=== PATIENT | male | born 1950 | race Caucasian/White ===

== ENCOUNTER 2016-06-24 14:38 | Inpatient (IN) | payer OTHER, MEDICARE ==
[~2016-06-24] VITALS: Ht 175.3 cm; Wt 102.6 kg
[~2016-06-24 14:38] MED LIST: ACET500C PO; DICL75TA PO; NAPR220T95 PO; ROSU10 PO; TRAM50TA PO
[2016-06-25] MEDS: SODIUM CHLORIDE 0.9% IV SCH ×2 (05:45→07:44)
[2016-06-25] MEDS ORDERED: INSULIN HUMAN REGULAR 1,000 UNITS/10 ML VIAL SQ PRN (05:45)
[2016-06-25] MEDS: TRANEXAMIC ACID IV SCH ×2 (05:45→07:44)
[2016-06-25] MEDS ORDERED: VANCOMYCIN 1250 MG/NS 250 ML (for 70-84 kg) IV SCH ×2 (05:45)
[2016-06-25] MEDS: ROPIVACAINE PERI-ARTICULAR INJECTION. PERIART SCH ×10 (05:45→09:30)
[2016-06-25] MEDS: LACTATED RINGER'S 1000 ML IV SCH (05:45)
[2016-06-25] MEDS ORDERED: ceFAZolin 2 GM PREMIX 50 ML IV SCH (05:45)
[2016-06-25] MEDS ORDERED: METOPROLOL TARTRATE 25 MG TAB PO PRN (05:45)
[2016-06-25] MEDS ORDERED: SODIUM CHLORID 0.9% 500 ML IV SCH (05:45)
[2016-06-25] MEDS: POVIDONE IODINE 7.5% SCRUB 118 ML BOTTLE TOP SCH (05:45)
[2016-06-25 05:50] VITALS: BP 153/86; PULSE 65; RESP 20; TEMP 97.4; O2SAT 96
[2016-06-25] MEDS ORDERED: VITA10003 PO (05:53)
[2016-06-25] MEDS ORDERED: ALLO300T2 PO (05:53)
[2016-06-25 06:15] LABS: AUTOMATED NEUTROPHIL # 3.2 TH/MM3 (1.8-7.7); BASOPHIL % 0.5 % (0.0-2.0); EOSINOPHIL # 0.1 TH/MM3 (0-0.4); EOSINOPHIL % 1.9 % (0.0-4.0); HEMATOCRIT 36.5 % (39.0-51.0); LYMPH % 12.9 % (9.0-44.0); LYMPHOCYTE # 0.6 TH/MM3 (1.0-4.8); MEAN CELL VOLUME 84.2 FL (80.0-100.0); MEAN CORPUSCULAR HGB CONC 34.4 % (32.0-36.0); NEUT % 74.7 % (16.0-70.0); PLATELET COUNT 96 TH/MM3 (150-450); RED BLOOD COUNT 4.33 MIL/MM3 (4.50-5.90); RED CELL DISTRIBUTION WIDTH 15.6 % (11.6-17.2); WHITE BLOOD COUNT 4.3 TH/MM3 (4.0-11.0)
[2016-06-25 06:18] LABS: HEMO FLAGS AUTO DIFF
[2016-06-25] MEDS ORDERED: MIDAZOLAM HCL 5 MG/5 ML VIAL ONE (06:48)
[2016-06-25] MEDS ORDERED: DEXAMETHASONE SOD PHOS 4 MG/ML VIAL ONE (06:53)
[2016-06-25] MEDS ORDERED: FAMOTIDINE 20 MG/2 ML VIAL ONE (06:53)
[2016-06-25 06:56] LABS: PLATELET ESTIMATE SMEAR LOW (NORMAL); PLATELET MORPHOLOGY NORMAL (NORMAL); SCAN/DIFF AUTO DIFF CONFIRMED
[2016-06-25] MEDS ORDERED: GENTAMICIN SULFATE 80 MG/2 ML VIAL IRRIGATION ONE (08:04)
[2016-06-25] MEDS: TOBRAMYCIN SULFATE 1200 MG VIAL ONE ×2 (08:19→09:24)
--- NOTE | 2016-06-25 08:42 | MH ---
cc: JAIR,MERRY DATE OF ADMISSION: 06/25/2016 ADMISSION DIAGNOSIS End-stage osteoarthritis right knee PROPOSED SURGERY Total knee replacement arthroplasty HISTORY OF PRESENT ILLNESS He has had problems for several years with both his knees and had undergone arthroscopic surgeries and nonoperative treatment. He saw me for the first time in March of 2016 complaining that the knee pain got so bad that he could barely ambulate and he had to be seen [facility] and was given crutches. He gave a history that he has had several cortisone injections in the past and they only helped temporarily. When seen on March 27, 2016, he was noted to be using crutches and barely able to bear weight and x-rays revealed [id number] with end-stage osteoarthritis. The diagnosis, treatment, the prognosis and the alternative treatment were all discussed with him in detail. He has already undergone several cortisone shots and arthroscopic surgery. Being that it is [id number] viscosupplementation is not going to help. Therefore, an indication was made for total knee replacement arthroplasty. He has been worked up and now brought in after informed consent for total knee replacement arthroplasty. PERSON/SOCIAL HISTORY Stopped smoking five years ago. He has occasional alcohol intake. 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 PAST HISTORY Arthritis. No other significant medical history. PAST SURGICAL HISTORY 1. Appendectomy in 1955 2. Arthroscopic surgery right and left knees. MEDICATIONS 1. Diclofenac 75 b.i.d. 2. Tylenol. ALLERGIES None. The procedure total knee of replacement arthroplasty and the potential risks, hazards and complications and potential outcome. They have all been discussed in detail. For details of informed consent, please refer to my office record. We talked to him basically about pain management, nerve blocks, periarticular injections, postoperative care, post hospital care, rehabilitation etc. My specific protocol for knee replacement have all been discussed. His preop workup is satisfactory. He does have a borderline low white count and borderline low platelets and I have discussed the situation with the ice sculptor who does not feel that there is any contraindication to surgery, but he may need a detailed workup on an elective basis. Informed consent has been obtained. No guarantees made. PHYSICAL EXAMINATION GENERAL: A tall, well-built and nourished white male who has a significant limp on the right leg. He has varus deformity and a mild flexion contracture. Range of motion is about 5 degrees to 120 degrees. 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 He has obvious osteophytic changes or tenderness over the medial joint line. No instability. He has palpable pedal pulses in the foot and no neurovascular deficit in the right foot. HEENT: Head normocephalic. Pupils react to light. Face symmetrical. HEART: Regular rhythm. No murmurs. LUNGS: Clear to auscultation. ABDOMEN: Soft and supple. The kidney not enlarged or tender. Bowel sounds active. MD FENG Montes/ /5:24 PM /8:40 AM
[2016-06-25] MEDS ORDERED: BUPIVACAINE HCL PF 0.5% 30 ML VIAL NB ONE (08:58)
[2016-06-25] MEDS ORDERED: SODIUM CHLORIDE 0.9% IV SCH ×2 (10:00→11:30)
[2016-06-25] MEDS ORDERED: TRANEXAMIC ACID IV SCH ×2 (10:00→11:30)
[2016-06-25] MEDS ORDERED: ONDANSETRON HCL 4 MG/2 ML VIAL IVP PRN (10:15)
[2016-06-25] MEDS ORDERED: ACETAMINOPHEN/HYDROcodone 325 MG/5 MG TAB PO PRN (10:15)
[2016-06-25] MEDS ORDERED: NALOXONE HCL 0.4 MG/ML AMP IV PRN (10:15)
[2016-06-25] MEDS ORDERED: diphenhydrAMINE HCL 50 MG/ML VIAL IV PRN (10:15)
[2016-06-25] MEDS ORDERED: Post-op Orders (for Pharmacy) MISC XX ONE (10:15)
[2016-06-25] MEDS ORDERED: TEMAZEPAM 15 MG CAP PO PRN (10:15)
[2016-06-25] MEDS ORDERED: SODIUM CHLORIDE 0.9% FLUSH 5 ML FLUSH IVF PRN (10:15)
[2016-06-25] MEDS ORDERED: traMADol HCL 50 MG TAB PO PRN (10:30)
[2016-06-25] MEDS: MORPHINE SULFATE 30 MG/30 ML PCA IV SCH (10:54)
[2016-06-25] MEDS: SODIUM CHLOR 0.9% 1000 ML INJ 1,000 ML IV SCH ×2 (10:54→20:48)
--- NOTE | 2016-06-25 11:45 | RADRPT ---
EXAM DATE/TIME: 06/25/2016 10:57 [facility] COMPARISON: No previous studies available for comparison. INDICATIONS : Post op right knee. MEDICAL HISTORY : None. SURGICAL HISTORY : None. ENCOUNTER: Initial ACUITY: 1 day PAIN SCORE: Non-responsive. LOCATION: Right knee. FINDINGS: The patient is post right knee arthroplasty. Orthopedic hardware is intact. The alignment is good. Th ere is no acute fracture. CONCLUSION: 1. Hardware in good position post arthroplasty. Serafin Mahoney MD on June 25, 2016 at 11:43 Board Certified Radiologist. This report was verified electronically.
[2016-06-25] MEDS: KETOROLAC TROMETHAMINE 30 MG/ML (IVP) VIAL IVP SCH ×2 (12:00→20:43)
[2016-06-25] MEDS: ceFAZolin 2 GM PREMIX 50 ML IV SCH ×2 (12:00→20:42)
[2016-06-25] MEDS: VANCOMYCIN INJ 1,000 MG in SODIUM CHLOR 0.9% 250 ML INJ 250 ML IV SCH ×2 (12:00→23:00)
[2016-06-25] MEDS ORDERED: ePHEDrine/NS 25 MG/5 ML SYR IV ONE (12:55)
[2016-06-25] MEDS ORDERED: LACTATED RINGER'S 1000 ML INJ 1,000 ML IV ONE (12:55)
[2016-06-25] MEDS ORDERED: PROPOFOL 200 MG/20 ML AMP IV ONE (12:55)
[2016-06-25 15:54] VITALS: BP 122/70; PULSE 61; RESP 18; TEMP 95.5; O2SAT 93
[2016-06-25 16:01] VITALS: O2SAT 97
--- NOTE | 2016-06-25 16:32 | MP ---
cc: MERRY TERRAZAS DATE OF SURGERY: 06/25/2016 PREOPERATIVE DIAGNOSIS: Osteoarthritis, right knee. POSTOPERATIVE DIAGNOSIS: Osteoarthritis, right knee. OPERATION: Total knee replacement arthroplasty using cemented Biomet components, femur 75 millimeter right tibia, 75 millimeter with I-beam stem, poly 12 mm flat patella medium. single peg. SURGEON Dr. Terrazas. ANESTHESIA Spinal. TECHNIQUE After induction of spinal anesthesia the patient's right lower extremity thoroughly prepped with alcohol and ChloraPrep, draped in routine fashion. After application of Esmarch bandage tourniquet inflated to 300 mmHg. The skin incision made somewhat medial to midline to avoid the tibial tuberacle. Incision deepened through subcutaneous tissue and arthrotomy was carried out. Osteophytes were excised in the medial femur and medial tibia and the soft tissue was raised on the medial side to the posterior medial corner excising osteophytes at the same time. Limited synovectomy carried out to just above the femur anteriorly so as to get better exposure. Femoral canal opened anterior to the posterior cruciate ligament, and the distal femoral cutting guide set at 5 degrees was used to make the distal cut, additional 2 mm of bone removed because of his mild flexion contracture of 5 degrees. External tibial guide was used to remove the proximal tibia referencing 4 mm from the lower most portion of the medial tibial plateau and this was completed. AP femoral guide was used to put the femoral guide at 6 degrees of external rotation to align it closer to the epicondylar axis and also be perpendicular to the [place] Line. A 75 millimeter AP block was used to make AP and chamfer cuts and everything looked good. Debridement of the joint was carried out. Clean-up cuts were made in the tibia, other additional osteophytes removed. Posterior osteophytes removed from the femur. Spacer block was now used and the 10 mm spacer block fits well in flexion and extension. Patella was prepared following routine technique. It was a fairly large patella and he seems to have somewhat of a tighter lateral retinaculum and, therefore, the patella was medialized and about 6 millimeters of the lateral border of the patella was excised with an oscillating saw. Trial implants were all placed and position, alignment, stability were all good. There was still some residual tightness of the lateral retinaculum, and after we checked everything including rotation of the components, a limited lateral release was carried out under direct vision. Bony surfaces thoroughly lavaged and dried. A mixture of ropivacaine, clonidine, epinephrine and Toradol was instilled evelyn-articularly with an 18 gauge needle. Femoral canal plugged with bone. Using 2 units of cobalt cement with 1200 mg of tobramycin in it, the implants were cemented with the tibia first and the femur, and then extension of the knee with a 12 mm spacer and patella cemented and clamped. Once the cement solidified joint was checked. Tourniquet released right after the implantation of the implants. Position, alignment, stability were all checked. Everything looks good. The joint was thoroughly lavaged and suctioned out. All debris removed and a 12-mm flat polyethylene liner was placed and clipped. Hemovac drain placed in the suprapatellar pouch. The knee was closed in mid flexion with 4 interrupted #2 Vicryl sutures in the midportion of the retinaculum and then #2 quill for the rest of the closure. Subcutaneous tissue closed with 2-0 Vicryl, skin closed with 3-0 subcuticular quill and Steri-Strips. Dressing applied with Xeroform, 4x4s, ABD, ice bladder and Jones bandage. The patient transferred to the recovery room in satisfactory condition. The patient tolerated the procedure well. TRANSFUSIONS/COMPLICATIONS: None. POSTOPERATIVE CONDITION Satisfactory PROGNOSIS Good. ESTIMATED BLOOD LOSS: 150 mL The patient's platelets are still below normal. It was 96 this morning, therefore, we are going to keep him just on aspirin at least for 24 hours, especially with him receiving spinal anesthetic. We will keep track of his platelets and decide whether to put him on Lovenox or just continue aspirin. MD FENG Montes/LAINEY /10:27 AM /4:17 PM
[2016-06-25] MEDS: MAGNESIUM HYDROXIDE SUSP 30 ML CUP PO SCH ×2 (17:43→20:47)
[2016-06-25] MEDS: ACETAMINOPHEN 1000 MG/100 ML VIAL IV SCH (17:45)
[2016-06-25] MEDS: ASPIRIN EC 325 MG TABEC PO SCH (17:45)
[2016-06-25 20:29] VITALS: BP 115/72; PULSE 63; RESP 20; TEMP 96.4; O2SAT 97
[2016-06-25] MEDS: SENNOSIDES 8.6 MG TAB PO SCH (20:47)
[2016-06-25] MEDS: SODIUM CHLORIDE 0.9% FLUSH 5 ML FLUSH IVF SCH (20:48)
[2016-06-26] VITALS (7 sets, daily range): BP systolic 102–127; BP diastolic 59–71; PULSE 62–74; RESP 18–20; TEMP 96.2–98.6; O2SAT 92–100
[2016-06-26] MEDS: ceFAZolin 2 GM PREMIX 50 ML IV SCH (04:55)
[2016-06-26] MEDS: KETOROLAC TROMETHAMINE 30 MG/ML (IVP) VIAL IVP SCH ×3 (04:55→20:00)
[2016-06-26] MEDS: ACETAMINOPHEN 1000 MG/100 ML VIAL IV SCH ×2 (04:56→17:41)
[2016-06-26] MEDS: SODIUM CHLOR 0.9% 1000 ML INJ 1,000 ML IV SCH ×3 (04:57→22:23)
[2016-06-26] MEDS: MORPHINE SULFATE 30 MG/30 ML PCA IV SCH (05:02)
[2016-06-26] MEDS: POVIDONE IODINE 7.5% SCRUB 118 ML BOTTLE TOP SCH (05:45)
[2016-06-26] MEDS: LACTATED RINGER'S 1000 ML IV SCH (05:45)
[2016-06-26 06:08] LABS: REVIEW FLAG FINAL
[2016-06-26 06:13] LABS: BICARBONATE 27.8 MEQ/L (21.0-32.0); POTASSIUM 3.7 MEQ/L (3.5-5.1)
--- NOTE | 2016-06-26 07:44 | HHI.FF ---
Face to Face Verification Diagnosis: (1) Osteoarthritis (2) Hyperlipidemia (3) Right knee pain (4) Total knee replacement status Physical Therapy Gait training Knee: Total knee, Protocol: Right Right LE Weight Bearing: WB as tolerated Nursing Nursing: Marcos teaching, Dressing changes Dressing Changes: Daily dressing change, Coverderm/Primapore I have seen patient Ti Toure on 06/26/16. My clinical findings support the need for the requested home health care services because: Limited ability to care for self Injectable med education/admin I certify that my clinical findings support that this patient is homebound because: Unable to use public transportation Lino Terrazas MD Jun 26, 2016 07:44
[2016-06-26] MEDS ORDERED: MISC-163 (07:47)
[2016-06-26] MEDS ORDERED: WALKER WHEELS/F1 MIS (07:48)
--- NOTE | 2016-06-26 07:53 | PD.ORT.PN ---
Subjective Post Op Day #: 1 Pain Scale: great Subjective Remarks great Range of Motion able to do SLR and quads Objective Vitals Vital Signs Date Time Temp Pulse Resp B/P Pulse Ox O2 Delivery O2 Flow Rate FiO2 06/26/16 05:02 18 06/26/16 04:26 97.2 65 19 117/68 97 06/26/16 00:30 96.2 65 20 114/68 96 06/25/16 20:29 96.4 63 20 115/72 97 06/25/16 19:07 16 06/25/16 16:01 97 Nasal Cannula 2.00 06/25/16 15:54 95.5 61 18 122/70 93 06/25/16 14:00 61 15 114/71 97 Nasal Cannula 2 06/25/16 13:00 97.4 65 14 135/76 97 Nasal Cannula 2 06/25/16 12:00 57 14 108/64 97 Nasal Cannula 2 06/25/16 11:45 60 14 109/63 97 Nasal Cannula 3 06/25/16 11:30 55 14 100/56 96 Nasal Cannula 3 06/25/16 11:15 59 16 97/58 95 Nasal Cannula 3 06/25/16 11:00 56 16 97/57 95 Nasal Cannula 3 06/25/16 10:54 14 06/25/16 10:45 61 16 101/54 95 Nasal Cannula 3 06/25/16 10:30 64 16 94/62 96 Nasal Cannula 3 06/25/16 10:24 98.1 72 16 91/51 95 Nasal Cannula 3 I/O 06/25/16 06/25/16 06/25/16 06/26/16 06/26/16 06/26/16 07:00 15:00 23:00 07:00 15:00 23:00 Intake Total 1964 ml 240 ml 240 ml Output Total 1100 ml 400 ml 200 ml Balance 864 ml -160 ml 40 ml Intake Oral 240 ml 240 ml IV Total 864 ml Other 1100 ml Output Urine Total 1050 ml 400 ml 200 ml Estimated Blood Loss 50 ml # Bowel Movements 0 0 Result Diagram: 06/26/16 0503 06/26/16 0503 Imaging Last 72 hours Impressions Knee X-Ray 06/25/16 0000 Signed Impressions: Service Date/Time: Saturday, June 25, 2016 10:57 - CONCLUSION: 1. Hardware in good position post arthroplasty. Serafin Mahoney MD Objective Remarks doing great. Moves toes well Hemovac draining moderately to check platelets Assessment & Plan Ortho Post Op Day #: 1 Problem List: Assessment and Plan Doing well to chk plate;ets ASA bid for VTE prophylaxis. low risk for it. Lino Terrazas MD Jun 26, 2016 07:53
[2016-06-26] MEDS: SODIUM CHLORIDE 0.9% FLUSH 5 ML FLUSH IVF SCH ×2 (09:00→22:22)
[2016-06-26] MEDS: ASPIRIN EC 325 MG TABEC PO SCH ×2 (09:42→17:40)
[2016-06-26] MEDS: CELECOXIB 200 MG CAP PO SCH (09:42)
[2016-06-26] MEDS: ALLOPURINOL 300 MG TAB PO SCH (09:42)
[2016-06-26] MEDS: CHOLECALCIFEROL (VIT D3) 1000 UNIT TAB PO SCH (09:42)
[2016-06-26] MEDS: MAGNESIUM HYDROXIDE SUSP 30 ML CUP PO SCH ×2 (09:44→22:22)
--- NOTE | 2016-06-26 16:51 | OTSOAPIP ---
TIME SESSION COMPLETED: PM TREATMENT TIME: 0 MINS. CHART REVIEWED. ATTEMPTED TO SEE FOR OT ASSESSMENT, HOWEVER PT EN ROUTE TO THE JOINT CLASS. WILL FOLLOW ABLE. Therapist: SOPHIA RIVERA OT/Zeina Signature on file
[2016-06-26] MEDS: ACETAMINOPHEN/HYDROcodone 325 MG/5 MG TAB PO PRN ×2 (17:40→22:27)
[2016-06-26] MEDS: DOCUSATE SODIUM 100 MG CAP PO SCH (22:21)
[2016-06-26] MEDS: SENNOSIDES 8.6 MG TAB PO SCH (22:22)
[2016-06-27] VITALS: BP 110/47; PULSE 76; RESP 20; TEMP 99.7; O2SAT 96
[2016-06-27 04:00] VITALS: BP 133/70; PULSE 81; RESP 20; TEMP 99.4; O2SAT 95
[2016-06-27] MEDS: ACETAMINOPHEN/HYDROcodone 325 MG/5 MG TAB PO PRN ×4 (04:13→17:35)
[2016-06-27] MEDS: KETOROLAC TROMETHAMINE 30 MG/ML (IVP) VIAL IVP SCH (04:14)
[2016-06-27] MEDS: LACTATED RINGER'S 1000 ML IV SCH ×2 (05:45→19:47)
[2016-06-27] MEDS: POVIDONE IODINE 7.5% SCRUB 118 ML BOTTLE TOP SCH (05:45)
[2016-06-27] MEDS: ACETAMINOPHEN 1000 MG/100 ML VIAL IV SCH ×2 (06:00→17:36)
[2016-06-27 07:02] LABS: AUTOMATED NEUTROPHIL # 2.9 TH/MM3 (1.8-7.7); BASOPHIL % 0.3 % (0.0-2.0); EOSINOPHIL # 0.1 TH/MM3 (0-0.4); EOSINOPHIL % 1.4 % (0.0-4.0); HEMATOCRIT 24.8 % (39.0-51.0); LYMPH % 15.4 % (9.0-44.0); LYMPHOCYTE # 0.6 TH/MM3 (1.0-4.8); MEAN CELL VOLUME 84.6 FL (80.0-100.0); MEAN CORPUSCULAR HEMOGLOBIN 29.1 PG (27.0-34.0); MEAN CORPUSCULAR HGB CONC 34.4 % (32.0-36.0); MONO % 13.1 % (0.0-8.0); NEUT % 69.8 % (16.0-70.0); PLATELET COUNT 79 TH/MM3 (150-450); RED BLOOD COUNT 2.93 MIL/MM3 (4.50-5.90); RED CELL DISTRIBUTION WIDTH 15.8 % (11.6-17.2); WHITE BLOOD COUNT 4.1 TH/MM3 (4.0-11.0)
[2016-06-27 07:28] LABS: HEMO FLAGS AUTO DIFF
--- NOTE | 2016-06-27 07:54 | PD.ORT.PN ---
Subjective Post Op Day #: 2 Pain Scale: minimal Subjective Remarks great Distance Walked walking hallways Objective Vitals Vital Signs Date Time Temp Pulse Resp B/P Pulse Ox O2 Delivery O2 Flow Rate FiO2 06/27/16 04:00 99.4 81 20 133/70 95 06/27/16 00:00 99.7 76 20 110/47 96 06/26/16 20:00 98.6 74 18 107/59 94 06/26/16 18:11 18 06/26/16 18:11 18 06/26/16 16:00 96.8 70 18 102/71 94 06/26/16 14:00 18 06/26/16 14:00 18 06/26/16 12:00 96.9 62 18 109/64 94 06/26/16 08:11 100 21 06/26/16 08:00 96.7 70 18 127/68 92 I/O 06/26/16 06/26/16 06/26/16 06/27/16 06/27/16 06/27/16 07:00 15:00 23:00 07:00 15:00 23:00 Intake Total 240 ml 1200 ml 240 ml 240 ml Output Total 330 ml 480 ml 375 ml Balance -90 ml 720 ml -135 ml 240 ml Intake Oral 240 ml 1200 ml 240 ml 240 ml Output Urine Total 200 ml 300 ml 225 ml Drainage Total 130 ml 180 ml 150 ml # Voids 0 # Bowel Movements 0 0 0 0 Result Diagram: 06/27/16 0525 06/26/16 0503 Imaging Last 72 hours Impressions Knee X-Ray 06/25/16 0000 Signed Impressions: Service Date/Time: Saturday, June 25, 2016 10:57 - CONCLUSION: 1. Hardware in good position post arthroplasty. Serafin Mahoney MD Objective Remarks doing great. Moves toes well Hemovac draining moderately, last 180 ml in 12 hours. Platelets yesterday 89, today 79. WBC ok Hb/Hct borderline Assessment & Plan Ortho Post Op Day #: 2 Problem List: Assessment and Plan DC drain and compressive drsg and ice. DC aspirin Close observation Hematology consult.. Lino Terrazas MD Jun 27, 2016 07:53
[2016-06-27 08:00] VITALS: BP 121/70; PULSE 66; RESP 16; TEMP 96; O2SAT 98
[2016-06-27 08:01] LABS: PLATELET ESTIMATE SMEAR LOW (NORMAL); PLATELET MORPHOLOGY NORMAL (NORMAL); SCAN/DIFF AUTO DIFF CONFIRMED
[2016-06-27] MEDS: ALLOPURINOL 300 MG TAB PO SCH (09:26)
[2016-06-27] MEDS: MAGNESIUM HYDROXIDE SUSP 30 ML CUP PO SCH ×2 (09:26→19:46)
[2016-06-27] MEDS: CELECOXIB 200 MG CAP PO SCH (09:26)
[2016-06-27] MEDS: DOCUSATE SODIUM 100 MG CAP PO SCH ×2 (09:26→19:46)
[2016-06-27] MEDS: CHOLECALCIFEROL (VIT D3) 1000 UNIT TAB PO SCH (09:26)
[2016-06-27] MEDS: SODIUM CHLORIDE 0.9% FLUSH 5 ML FLUSH IVF SCH ×2 (09:26→19:46)
[2016-06-27 11:26] LABS: APTT (PATIENT) 28.6 SEC (24.3-30.1); PROTHROMBIN TIME - PATIENT 11.4 SEC (9.8-11.6)
[2016-06-27] MEDS: SODIUM CHLOR 0.9% 1000 ML INJ 1,000 ML IV SCH ×2 (12:15→19:47)
[2016-06-27 13:43] VITALS: BP 118/64; PULSE 71; RESP 16; TEMP 96.3; O2SAT 97
[2016-06-27 16:00] VITALS: BP 133/69; PULSE 71; RESP 16; TEMP 96; O2SAT 95
[2016-06-27] MEDS: SENNOSIDES 8.6 MG TAB PO SCH (19:46)
[2016-06-27 20:00] VITALS: BP 118/59; PULSE 71; RESP 18; TEMP 96; O2SAT 96
--- NOTE | 2016-06-27 22:48 | MB ---
cc: MERRY TERRAZAS RUBY ANNE E. M.D. DATE OF CONSULTATION 06/27/16 1950 DATE OF SERVICE 06/27/[address] Miah Terrazas CHIEF COMPLAINT Dr. Terrazas requests a consultation for Mr. Toure regarding thrombocytopenia post right knee replacement surgery. HISTORY OF PRESENT ILLNESS Mr. Toure is a 66-year-old man with a history of arthritis. He reports hurting his knee a long time ago in his teens. When he lives in [place], he had multiple joint aspirations in that knee. He hurt his knee around Thanksgiving. He stepped off the curve the wrong way and it sounds like he tore his anterior and posterior cruciate ligament. This is on top of already osteoarthritic knee. Towards the end of the year, he was switching insurance. He had to defer from definitive surgery for his right knee until he had established with his new insurance. During the course of his workup, he was found to have thrombocytopenia. He reports no prior history of thrombocytopenia. He was pending consultation with hematology. He has no prior history of bleeding disorder. He has had multiple surgeries in the past for the neck, the ear and appendix. He denies any prior thrombocytopenia. He has been with Dr. De Leon for many years. Prior platelet counts are not available during the consultation. The case was discussed with Dr. Terrazas. Mr. Toure underwent his definitive surgery with total knee replacement arthroplasty. His surgery went uneventfully well on June 25, 2016. He was placed on aspirin prophylaxis 325 mg. Unfortunately, he developed progressive thrombocytopenia and increased bloody discharge from his drain. His platelet count was 96,000 on admission. It nadired at 79,000 at the day of the consultation. His hemoglobin was 12.5 on admission and decreased to 8.5. Coagulation studies were performed. PT/PTT, fibrinogen were normal. His peripheral smear was reviewed with pathology. There is no evidence of microangiopathic hemolytic process. No platelet count is appreciated. He denies any other bleeding except from the drain site removal. Mr. Toure feels himself actually getting better. The previous osteoarthritic pain symptom has resolved. He denies any prior history of liver disease. He denies heavy drinking. He has no family history of bleeding disorder. His parents both lived to be in their 90s. Father of Alzheimer's disease. He denies any fevers, chills or night sweats. His appetite is good. The rest of his review of systems is negative. PAST MEDICAL HISTORY Osteoarthritis of the right knee. PAST SURGICAL HISTORY 1. Appendectomy, 2. Arthroscopic surgery of right and left knee 3. Neck surgery 4. Right ear surgery FAMILY HISTORY No family history of cancer. No family history of bleeding disorder. Both parents lived to their 90s and are now . Father had Alzheimer's. ALLERGIES NO KNOWN DRUG ALLERGIES. MEDICATIONS current, 1. Docusate. 2. Celebrex. 3. Allopurinol 4. Vitamin D3. 5. Senokot. 6. Acetaminophen 7. Milk of Magnesia 8. Ultram. 9. [place] p.r.n. 10. Cephazolin. 11. Aspirin has been placed on hold. PHYSICAL EXAMINATION VITAL SIGNS: Temperature 96.3, heart rate 71, respiratory rate 16, blood pressure 118/64, saturation 97%. GENERAL: Mr. Toure is a well-developed, robust appearing man who looks his stated age. HEENT: His pupils are round, reactive to light and accommodation. Oropharynx is clear. NECK: Supple. LUNGS: Clear to auscultation. CARDIOVASCULAR: Exam reveals normal rate, rhythm. ABDOMEN: Benign. EXTREMITIES: Large lower extremity with swelling of the right leg, right knee bandage is in place. The drain site is leaking serosanguineous fluid. NEUROLOGIC: Exam is nonfocal. LABORATORY DATA As described above. ASSESSMENT/PLAN Ms. Toure is a 66-year-old man with no significant past history except for osteoarthritis. He hurt his right knee requiring right total knee replacement surgery. His course was complicated by chronic thrombocytopenia. We discussed the differential. He has thrombocytopenia and mild anemia prior to his admission. We discussed his chronic use of ibuprofen for his osteoarthritis. He had use NSAIDs in the past. Denies any bleeding. No melena or bright red blood per rectum. However, his MCV is low. I will check iron studies. We will continue evaluation for the cytopenias on an outpatient basis. Immune thrombocytopenic purpura appears less likely given the small degree of platelet count decrease. His platelet count went from 96,000-79,000. This is acceptable within range of post surgical changes. However, he has significant amount of bleeding with his hemoglobin decreasing from 12.5-8.5. I concur with holding his aspirin because of the continued oozing. I anticipate being able to resume his aspirin tomorrow as DVT prophylaxis once the oozing has stopped. He has no evidence of coagulopathy or DIC. He looks well. We discussed trying to avoid a platelet transfusion unless absolutely necessary. We discussed that his suture line site appears to be good. He is moving his legs in order to avoid deep vein thromboses. He is using pneumatic compression stockings for the foot in order to prevent a deep vein thromboses. I will obtain ultrasound of the liver and spleen. Differential is hypersplenism. Clinically I am unable to feel a large spleen. His abdomen is large. He denies any drinking recently, but he had in the past. He reports not drinking as much as he would usually like since he had to hold down a job. 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 Immune thrombocytopenic purpura appears less likely as the mean platelet volume is low. I am unable to exclude thrombocytopenia as drug effect. He was exposed to cephalosporin during this admission. We will continue to follow and monitor closely. MD DAYNA Moreno/ /6:31 PM /10:28 PM MTDDemar
[2016-06-28] VITALS: BP 101/63; PULSE 76; RESP 16; TEMP 98.5; O2SAT 98
[2016-06-28] MEDS: ACETAMINOPHEN/HYDROcodone 325 MG/5 MG TAB PO PRN ×2 (03:09→08:35)
[2016-06-28] MEDS: ACETAMINOPHEN 1000 MG/100 ML VIAL IV SCH (05:43)
[2016-06-28 07:24] LABS: HEMATOCRIT 24.2 % (39.0-51.0); MEAN CELL VOLUME 84.6 FL (80.0-100.0); MEAN CORPUSCULAR HGB CONC 34.3 % (32.0-36.0); PLATELET COUNT 82 TH/MM3 (150-450); RED BLOOD COUNT 2.86 MIL/MM3 (4.50-5.90); RED CELL DISTRIBUTION WIDTH 16.3 % (11.6-17.2); WHITE BLOOD COUNT 3.6 TH/MM3 (4.0-11.0)
[2016-06-28 07:31] LABS: REVIEW FLAG FINAL
[2016-06-28 08:00] VITALS: BP 121/76; PULSE 80; RESP 16; TEMP 96; O2SAT 96
[2016-06-28] MEDS: SODIUM CHLOR 0.9% 1000 ML INJ 1,000 ML IV SCH ×2 (08:15→12:20)
[2016-06-28] MEDS: CHOLECALCIFEROL (VIT D3) 1000 UNIT TAB PO SCH (08:34)
[2016-06-28] MEDS: CELECOXIB 200 MG CAP PO SCH (08:34)
[2016-06-28] MEDS: ALLOPURINOL 300 MG TAB PO SCH (08:34)
[2016-06-28] MEDS: SODIUM CHLORIDE 0.9% FLUSH 5 ML FLUSH IVF SCH ×2 (08:35→21:07)
[2016-06-28] MEDS: MAGNESIUM HYDROXIDE SUSP 30 ML CUP PO SCH ×2 (08:36→21:00)
[2016-06-28] MEDS: DOCUSATE SODIUM 100 MG CAP PO SCH ×2 (08:36→21:00)
--- NOTE | 2016-06-28 09:29 | PD.ORT.PN ---
Subjective Post Op Day #: 3 Pain Scale: hardly any Subjective Remarks great Objective Vitals Vital Signs Date Time Temp Pulse Resp B/P Pulse Ox O2 Delivery O2 Flow Rate FiO2 06/28/16 00:00 98.5 76 16 101/63 98 06/27/16 20:00 96.0 71 18 118/59 96 06/27/16 16:00 96.0 71 16 133/69 95 06/27/16 13:43 96.3 71 16 118/64 97 I/O 06/27/16 06/27/16 06/27/16 06/28/16 06/28/16 06/28/16 07:00 15:00 23:00 07:00 15:00 23:00 Intake Total 240 ml 1320 ml 780 ml Output Total 500 ml Balance 240 ml 820 ml 780 ml Intake Oral 240 ml 1320 ml 780 ml Output Urine Total 500 ml # Voids 0 6 3 # Bowel Movements 0 1 0 Result Diagram: 06/28/16 0633 06/26/16 0503 Other Results Laboratory Tests Test 06/27/16 11:02 Prothrombin Time 11.4 SEC (9.8-11.6) Prothromb Time International 1.0 RATIO Ratio Imaging Last 72 hours Impressions Knee X-Ray 06/25/16 0000 Signed Impressions: Service Date/Time: Saturday, June 25, 2016 10:57 - CONCLUSION: 1. Hardware in good position post arthroplasty. Serafin Mahoney MD Objective Remarks oozed drainage soiling dressing yesterday. Drsgs changed this am, so far dry Moves toes well Assessment & Plan Assessment and Plan HEMATOLOGY CONSULT APPRECIATED If dressings stay dry to restart ASA, but only 325 once a day Hopefully DC tomorrow. Lino Terrazas MD Jun 28, 2016 09:29
[2016-06-28 12:00] VITALS: BP 112/65; PULSE 78; RESP 16; TEMP 97.9; O2SAT 96
--- NOTE | 2016-06-28 13:38 | PD.ONC.PN ---
Subjective Subjective Remarks Afebrile overnight. Pt sitting up on side of bed in no distress. He has been walking around the room with walker. His pain is controlled. No SOB. No bleeding. Objective Data Date Time Temp Pulse Resp B/P Pulse Ox O2 Delivery O2 Flow Rate FiO2 06/28/16 08:00 96.0 80 16 121/76 96 06/28/16 00:00 98.5 76 16 101/63 98 06/27/16 20:00 96.0 71 18 118/59 96 06/27/16 16:00 96.0 71 16 133/69 95 06/27/16 13:43 96.3 71 16 118/64 97 06/28/16 06/28/16 06/28/16 07:00 15:00 23:00 Intake Total 780 ml Balance 780 ml Result Diagram: 06/28/16 0633 06/26/16 0503 Laboratory Results Laboratory Tests Test 06/28/16 06:33 White Blood Count 3.6 TH/MM3 Red Blood Count 2.86 MIL/MM3 Hemoglobin 8.3 GM/DL Hematocrit 24.2 % Mean Corpuscular Volume 84.6 FL Mean Corpuscular Hemoglobin 29.0 PG Mean Corpuscular Hemoglobin 34.3 % Concent Red Cell Distribution Width 16.3 % Platelet Count 82 TH/MM3 Mean Platelet Volume 8.5 FL Administered Medications Medications (Trade) Dose Ordered Sig/Leanna Route PRN Reason Start Time Stop Time Status Last Admin Dose Admin Lactated Ringer's 1,000 ml @ 30 mls/hr Q24H IV 06/25/16 05:45 06/25/16 05:45 Sodium Chloride (NS 1000 ml Inj) 1,000 ml @ 100 mls/hr Q10H IV 06/25/16 10:15 06/26/16 04:57 IV Flush (NS Flush) 2 ml BID IVF 06/25/16 21:00 06/28/16 08:35 Acetaminophen/ Hydrocodone Bitart ([place] 5-325 Mg) 1 tab Q4H PRN PO PAIN LESS THAN 5 ON SCALE 06/25/16 10:15 06/26/16 13:00 Acetaminophen/ Hydrocodone Bitart ([place] 5-325 Mg) 2 tab Q4H PRN PO PAIN SCALE 5 TO 10 06/25/16 10:15 06/28/16 08:35 Docusate Sodium (Colace) 100 mg BID PO 06/26/16 21:00 06/27/16 09:26 Morphine Sulfate (Morphine 1 Mg/ ml CONSULTANT NURSE) 30 mg UNSCH IV 06/25/16 10:15 06/26/16 05:02 Celecoxib (CeleBREX) 200 mg DAILY PO 06/26/16 09:00 06/28/16 08:34 Allopurinol (Zyloprim) 300 mg DAILY PO 06/26/16 09:00 06/28/16 08:34 Cholecalciferol (Vitamin D3) 1,000 units DAILY PO 06/26/16 09:00 06/28/16 08:34 Magnesium Hydroxide (Milk Of Santana Mcnamara) 30 ml BID PO 06/25/16 17:00 06/27/16 09:26 Sennosides (Senokot) 17.2 mg HS PO 06/25/16 21:00 06/26/16 22:22 Objective Remarks GENERAL: Older male, sitting up on side of bed in no distress. SKIN: Warm and dry. HEAD: Normocephalic. EYES: No injection or drainage. NECK: Supple, trachea midline. CARDIOVASCULAR: +S1/S2. RESPIRATORY: Lungs clear to auscultation. EXTREMITIES: RLE with swelling and Jones bandage. Cooling apparatus in place to R knee. GASTROINTESTINAL: Abdomen soft, non-tender, nondistended. NEUROLOGICAL: No obvious focal deficit. Awake, alert, and oriented x3. Assessment/Plan Problem List: (1) Thrombocytopenia Status: Acute Plan: -- Likely due to post surgical changes --? Drug effect; was treated with cephalosporins this admission -- ITP less likely -- OK to restart ASA for DVT prophylaxis once no further oozing (2) Normocytic anemia Status: Acute Plan: -- Likely due to post-surgical bleeding. -- Ferritin level OK -- Further assess cytopenias on an outpatient basis. Assessment 66 y/o male admitted for total R knee replacement and was found to have thrombocytopenia with oozing from surgical site. Plan 1. OK to restart Aspirin as prophylaxis once no oozing from R knee incision. 2. Monitor CBC; no platelet transfusion unless counts dropping with continued bleeding. 3. Will see pt on an outpatient basis to further address cytopenias. Dot Soto Jun 28, 2016 13:38 Bright Crook MD Jun 29, 2016 13:06
[2016-06-28 16:00] VITALS: BP 142/72; PULSE 69; RESP 16; TEMP 97.6; O2SAT 97
[2016-06-28 20:32] VITALS: BP 140/81; PULSE 80; RESP 21; TEMP 96.3; O2SAT 98
[2016-06-28] MEDS: SENNOSIDES 8.6 MG TAB PO SCH (21:00)
[2016-06-29 00:30] VITALS: BP 131/73; PULSE 80; RESP 21; TEMP 96.2; O2SAT 97
[2016-06-29] MEDS: SODIUM CHLOR 0.9% 1000 ML INJ 1,000 ML IV SCH ×2 (04:15→08:41)
[2016-06-29] MEDS: ACETAMINOPHEN/HYDROcodone 325 MG/5 MG TAB PO PRN ×2 (05:39→12:28)
[2016-06-29] MEDS: LACTATED RINGER'S 1000 ML IV SCH (05:45)
[2016-06-29 08:14] VITALS: BP 137/86; PULSE 73; RESP 18; TEMP 95.6; O2SAT 98
[2016-06-29] MEDS: CELECOXIB 200 MG CAP PO SCH (08:40)
[2016-06-29] MEDS: MAGNESIUM HYDROXIDE SUSP 30 ML CUP PO SCH (08:40)
[2016-06-29] MEDS: DOCUSATE SODIUM 100 MG CAP PO SCH (08:40)
[2016-06-29] MEDS: CHOLECALCIFEROL (VIT D3) 1000 UNIT TAB PO SCH (08:41)
[2016-06-29] MEDS: ALLOPURINOL 300 MG TAB PO SCH (08:41)
[2016-06-29] MEDS ORDERED: ASPI325T PO (08:44)
[2016-06-29] MEDS ORDERED: HYDR-3516 PO (08:44)
--- NOTE | 2016-06-29 08:48 | PD.ORT.PN ---
Subjective Post Op Day #: 4 Pain Scale: not much Subjective Remarks great Range of Motion 10 to75 degs Distance Walked all over the place Objective Vitals Vital Signs Date Time Temp Pulse Resp B/P Pulse Ox O2 Delivery O2 Flow Rate FiO2 06/29/16 00:30 96.2 80 21 131/73 97 06/28/16 20:32 96.3 80 21 140/81 98 06/28/16 16:00 97.6 69 16 142/72 97 06/28/16 12:00 97.9 78 16 112/65 96 I/O 06/28/16 06/28/16 06/28/16 06/29/16 06/29/16 06/29/16 07:00 15:00 23:00 07:00 15:00 23:00 Intake Total 780 ml 600 ml 720 ml 480 ml Output Total 1000 ml Balance 780 ml 600 ml 720 ml -520 ml Intake Oral 780 ml 600 ml 720 ml 480 ml Output Urine Total 1000 ml # Voids 3 3 3 1 # Bowel Movements 0 0 0 Result Diagram: 06/28/16 0633 06/26/16 0503 Imaging Last 72 hours Impressions Knee X-Ray 06/25/16 0000 Signed Impressions: Service Date/Time: Saturday, June 25, 2016 10:57 - CONCLUSION: 1. Hardware in good position post arthroplasty. Serafin Mahoney MD Objective Remarks A.A, & O Right knee: Moderate swelling and bruising. Incision dry. Drainsite dry, dry blood on dressing Moves toes well Assessment & Plan Ortho Post Op Day #: 4 Problem List: Assessment and Plan DC home with C Rx hydrocodone and ASA 325 To see me 2 wks postop Lino Terrazas MD Jun 29, 2016 08:48
[2016-06-29] MEDS: SODIUM CHLORIDE 0.9% FLUSH 5 ML FLUSH IVF SCH (09:00)
--- NOTE | 2016-07-05 20:54 | MD ---
cc: JAIR,MERRY ADMISSION DATE: 06/25/2016 DISCHARGE DATE: 06/29/2016 ADMISSION DIAGNOSIS: End-stage osteoarthritis both knees. SURGICAL PROCEDURES: Total knee replacement arthroplasty, right knee. BRIEF HISTORY: She has a long history of problems with both knees having had conservative treatment with injections, NSAIDs as well as arthroscopic surgery in the past. She is now at the point that she is not able to ambulate without assistive devices and not able to work because of pain in both knees, right worse than left. Preoperative workup showed a thrombocytopenia but within reasonable limits and some low white count. PT and APTT were normal. HOSPITAL COURSE: The patient underwent total knee replacement arthroplasty uneventfully on the day of admission. The postoperative course consisted of more than normal drainage through the Hemovac with platelets diminishing on serial CBCs but the lowest being 79,000. Therefore, the Hemovac drain was left for about forty hours and then discontinued. Dressings were applied. Hematology consult was obtained and it was suspected it was assessed that did the thrombocytopenia was probably due to excessive NSAIDs intake and/or due to history of alcohol, et cetera and needs a more thorough workup as an outpatient on an elective basis. Aspirin b.i.d. was used initially for prophylactic anticoagulation for DVT but because of the excessive bleeding and oozing and the following platelets, that was discontinued. Yesterday the CBC indicated a white count of 3600 and a platelet count of 82,000. The patient's knee was examined today and reveals moderate swelling, no bleeding anywhere. The drain site is dry. There is some ecchymosis. He moves the knee through a fairly good range of motion. He is ambulating and weightbearing all over the place without much pain. He is afebrile. Home health care has been arranged for dressing changes and physical therapy. I have instructed them to walk as much as possible and constantly do range of motion of the foot and toes. We are sending him home on aspirin 325 mg once a day. He is also getting a prescription for hydrocodone 5/325 one to two four times a day PRN for pain #90. He was advised to constantly use large ice bag over the knee. The patient will see me in the office two weeks postop. If there are any questions, he will give me a call. The patient will continue on his home medications except for the Diclofenac. DISCHARGE CONDITION: Stable. MD FENG Montes/ABNER /8:51 AM /8:41 PM
== END 2016-06-29 13:03 | disposition home health service (06) | DRG 470 ==
LOC: HSDI 06-25 05:09 → N06A 06-25 14:21
PROVIDERS: ADMIT Orthopaedic Surgery; ATTEND Orthopaedic Surgery
PROC: 3E0T3CZ (ICD-10-PCS; 2016-06-25)
PROC: 0SRC0J9 Replacement of Right Knee Joint with Synthetic Substitute, Cemented, Open Approach (ICD-10-PCS; principal; 2016-06-25 07:20)
DX: M17.11 Unilateral primary osteoarthritis, right knee (principal); D69.6 Thrombocytopenia, unspecified; D64.9 Anemia, unspecified; Z87.891 Personal history of nicotine dependence
CPT/HCPCS: 73560; 80048; 82728; 85014; 85018; 85025; 85027; 85049; 85060; 85384; 85610; 85730; 86850; 86900; 86901; 86902; 86920; 86922; 94150; C1776; J0131; J0171; J0690; J0735; J1100; J1200; J1580; J1885; J2250; J2270; J2795; J3260; J3370; J7030; J7050; J7120

== ENCOUNTER 2016-08-11 09:00 | Inpatient (IN) | payer OTHER, MEDICARE ==
[~2016-08-11] VITALS: Ht 175.3 cm; Wt 118.4 kg
[~2016-08-11 09:00] MED LIST changes: -ACET500C PO; +ALLO300T2 PO; -DICL75TA PO; -NAPR220T95 PO; -ROSU10 PO
[2016-09-23] MEDS ORDERED: ASPI81TA19 PO (12:48)
[2016-09-23] MEDS ORDERED: CHOL1CAP6 PO (12:48)
[2016-09-23] MEDS ORDERED: IRON27TA PO (12:49)
[2016-09-24 08:30] VITALS: BP 137/87; PULSE 66; RESP 20; TEMP 99; O2SAT 96
[2016-09-24] MEDS ORDERED: CHLORHEXIDINE GLUCONATE 4% SOLN 120 ML BTL TOPICAL SCH (08:30)
[2016-09-24] MEDS ORDERED: INSULIN HUMAN REGULAR 1,000 UNITS/10 ML VIAL SQ PRN (08:30)
[2016-09-24] MEDS ORDERED: ceFAZolin 2 GM PREMIX 50 ML IV SCH (08:30)
[2016-09-24] MEDS ORDERED: POVIDONE IODINE 5% (ANTISEPSIS KIT) 4 APPLICATIONS EACH NARE PRN (08:30)
[2016-09-24] MEDS ORDERED: SODIUM CHLORID 0.9% 500 ML IV PRN (08:30)
[2016-09-24] MEDS ORDERED: VANCOMYCIN 1250 MG/NS 250 ML (for 70-84 kg) IV SCH ×2 (08:30)
[2016-09-24] MEDS ORDERED: CHLORHEXIDINE GLUCONATE 2 % 1 PACK (2 CLOTHS) TOPICAL PRN (08:30)
[2016-09-24] MEDS ORDERED: METOPROLOL TARTRATE 25 MG TAB PO PRN (08:30)
[2016-09-24] MEDS ORDERED: LACTATED RINGER'S 1000 ML IV PRN (08:30)
--- NOTE | 2016-09-24 08:49 | EKG ---
Date Performed: 09/24/2016 Time Performed: 08:28:28 PTAGE: 66 years EKG: Sinus rhythm NORMAL ECG NO PREVIOUS TRACING DOCTOR: Eric Stinson Interpretating Date/Time 09/24/2016 08:49:03
[2016-09-24] MEDS ORDERED: BUPIVACAINE LIPOSOME PF 1.3% 20 ML VIAL ONE (09:24)
[2016-09-24] MEDS ORDERED: TRANEXAMIC ACID INJ 994 MG in SODIUM CHLORIDE 0.9% INJ 100 ML IV SCH ×2 (10:00→13:00)
[2016-09-24] MEDS ORDERED: PROPOFOL 500 MG/50 ML INJ 50 ML ONE (10:29)
[2016-09-24] MEDS ORDERED: MIDAZOLAM HCL 2 MG/2 ML VIAL ONE (10:29)
[2016-09-24] MEDS ORDERED: FAMOTIDINE 20 MG/2 ML VIAL ONE (10:29)
--- NOTE | 2016-09-24 11:04 | MH ---
cc: MERRY ADAM M.D. DATE OF ADMISSION 09/24/2016 ADMITTING DIAGNOSIS End-stage osteoarthritis left knee PROPOSED SURGERY Total knee replacement arthroplasty left knee PRESENT HISTORY He has had problems with both knees for several years and has undergone arthroscopic surgeries and injections and anti-inflammatories. When he first saw me in March of 2016, he was unable to walk without the use of crutches especially with the right knee, but he also had problems with both knees. The patient underwent total knee replacement arthroplasty of the right knee performed on June 25, 2016. He has done very well. He is now being brought in for total knee replacement arthroplasty of the left knee. PAST HISTORY Other than the arthroscopic surgery right and left knees, he has had appendectomy. MEDICATIONS 1. Tylenol 2. NSAID'S 3. Diclofenac PERSONAL AND SOCIAL HISTORY He stopped smoking several years ago. He takes occasional alcohol. He worked for a [employer] for many years and now works part-time at [employer]. ALLERGIES None REVIEW OF SYSTEMS His main complaint is pain and instability of the left knee. The diagnosis, the treatment, the prognosis and the potential risks, hazards, complications expected results have all been discussed in detail with him. Informed consent obtained. Detailed informed consent documented on the office record. The patient did low platelets on the last admission for the total knee and he was seen by a camp advisor in the hospital and later on as outpatient. He did not need any specific treatment. His platelets now were near normal. PHYSICAL EXAM Physical examination reveals a tall white male with a big frame who has a healed scar on the right knee with mild residual swelling, but good range of motion from zero to 110 degrees. Left knee as well has obvious osteophytic changes medial joint line. The varus deformity is hidden by the subluxation laterally of the tibia. Flexion can be done well beyond 90 degrees. He has palpable pedal pulses and moves his toes well. He has tenderness over the medial joint line and crepitus in the patellofemoral joint of the left knee. No pain on range of motion of the left hip. HEAD: Normocephalic. EYES: Pupils react to light. FACE: Symmetrical. HEART: Regular rhythm. No murmurs. LUNGS: Clear to auscultation. ABDOMEN: Soft and supple. MD MICHAELA Montes /10:16 AM /10:52 AM
[2016-09-24] MEDS ORDERED: GENTAMICIN SULFATE 80 MG/2 ML VIAL IRRIGATION ONE (11:59)
[2016-09-24] MEDS ORDERED: ePHEDrine/NS 25 MG/5 ML SYR IV ONE (12:00)
[2016-09-24] MEDS ORDERED: ONDANSETRON HCL 4 MG/2 ML VIAL IV PUSH ONE (12:00)
[2016-09-24] MEDS ORDERED: LACTATED RINGER'S 1000 ML INJ 1,000 ML IV ONE (12:00)
[2016-09-24] MEDS ORDERED: PROPOFOL 200 MG/20 ML AMP IV ONE (12:00)
[2016-09-24] MEDS ORDERED: PHENYLEPH/NS 1000 MCG/10 ML SYR IV ONE (12:00)
[2016-09-24] MEDS ORDERED: ROPIVACAINE PERI-ARTICULAR INJECTION. P-ARTICULR SCH ×5 (12:45)
[2016-09-24] MEDS ORDERED: fentaNYL CITRATE 250 MCG/5 ML AMP ONE (14:13)
[2016-09-24] MEDS ORDERED: ONDANSETRON HCL 4 MG/2 ML VIAL IVP PRN (14:30)
[2016-09-24] MEDS ORDERED: NALOXONE HCL 0.4 MG/ML AMP IV PRN (14:30)
[2016-09-24] MEDS ORDERED: TRANEXAMIC ACID INJ 0 MG in SODIUM CHLORIDE 0.9% INJ 100 ML IV SCH (14:30)
[2016-09-24] MEDS ORDERED: TEMAZEPAM 15 MG CAP PO PRN (14:30)
[2016-09-24] MEDS ORDERED: diphenhydrAMINE HCL 50 MG/ML VIAL IV PRN (14:30)
[2016-09-24] MEDS ORDERED: traMADol HCL 50 MG TAB PO PRN (14:30)
[2016-09-24] MEDS ORDERED: Post-op Orders (for Pharmacy) MISC XX ONE (14:30)
[2016-09-24] MEDS ORDERED: ACETAMINOPHEN/HYDROcodone 325 MG/5 MG TAB PO PRN (14:30)
[2016-09-24] MEDS ORDERED: SODIUM CHLORIDE 0.9% FLUSH 5 ML FLUSH IVF PRN (14:30)
[2016-09-24] MEDS: SODIUM CHLOR 0.9% 1000 ML INJ 1,000 ML IV SCH ×2 (15:00→23:43)
--- NOTE | 2016-09-24 15:15 | RADRPT ---
EXAM DATE/TIME: 09/24/2016 14:37 [facility] COMPARISON: No previous studies available for comparison. INDICATIONS : Post op left knee replacement. MEDICAL HISTORY : None. SURGICAL HISTORY : None. ENCOUNTER: Initial ACUITY: 1 day PAIN SCORE: 0/10 LOCATION: Left knee. FINDINGS: 2 views left knee. Total knee prosthesis in place. Bone alignment within normal limits. No evidence of fracture. Anterior cutaneous marc. CONCLUSION: Postoperative appearance of total knee prosthesis. Elio Pierre MD on September 24, 2016 at 15:13 Board Certified Radiologist. This report was verified electronically.
[2016-09-24] MEDS: MORPHINE SULFATE 30 MG/30 ML PCA IV SCH (15:48)
[2016-09-24] MEDS: KETOROLAC TROMETHAMINE 30 MG/ML (IVP) VIAL IVP SCH ×2 (16:00→23:38)
[2016-09-24] MEDS ORDERED: DO NOT ADM ANY ANTICOAGULANT DRUGS PRN (17:15)
[2016-09-24 17:20] VITALS: BP 111/62; PULSE 59; RESP 16; TEMP 96.3; O2SAT 97
[2016-09-24] MEDS: ceFAZolin INJ 2 MG in SODIUM CHLORIDE 0.9% INJ 100 ML IV SCH (19:38)
[2016-09-24] MEDS: ACETAMINOPHEN 1000 MG/100 ML VIAL IV SCH ×2 (19:39→21:00)
[2016-09-24 19:49] VITALS: O2SAT 98
[2016-09-24 20:21] VITALS: BP 119/65; PULSE 55; RESP 19; TEMP 96.7; O2SAT 95
[2016-09-24] MEDS ORDERED: VANCOMYCIN 1,500 MG/NS 500 ML IV ONE ×2 (21:00)
[2016-09-24] MEDS: SODIUM CHLORIDE 0.9% FLUSH 5 ML FLUSH IVF SCH (21:00)
[2016-09-24] MEDS: ASPIRIN 81 MG CHEW TAB PO SCH (21:17)
[2016-09-24] MEDS ORDERED: VANCOMYCIN INJ 1.5 GM in SODIUM CHLOR 0.9% 250 ML INJ 250 ML IV SCH (23:00)
[2016-09-25] VITALS (7 sets, daily range): BP systolic 105–129; BP diastolic 58–69; PULSE 61–76; RESP 15–22; TEMP 96.4–98.2; O2SAT 94–98
[2016-09-25] MEDS: MORPHINE SULFATE 30 MG/30 ML PCA IV SCH (01:12)
[2016-09-25] MEDS: ceFAZolin INJ 2 MG in SODIUM CHLORIDE 0.9% INJ 100 ML IV SCH ×2 (05:10→12:26)
[2016-09-25 05:59] LABS: HEMATOCRIT 29.7 % (39.0-51.0)
[2016-09-25 06:02] LABS: REVIEW FLAG FINAL
[2016-09-25 06:18] LABS: POTASSIUM 3.9 MEQ/L (3.5-5.1)
[2016-09-25] MEDS ORDERED: HYDR-3516 PO (07:28)
--- NOTE | 2016-09-25 07:29 | HHI.FF ---
Face to Face Verification Diagnosis: (1) Total knee replacement status Physical Therapy Gait training Knee: Total knee, Protocol: Left, Full weight bearing Nursing Nursing: Dressing changes Dressing Changes: Daily dressing change, Coverderm/Primapore I have seen patient Ti Toure on 09/25/16. My clinical findings support the need for the requested home health care services because: Limited ability to care for self I certify that my clinical findings support that this patient is homebound because: Unable to use public transportation Lino Terrazas MD Sep 25, 2016 07:29
--- NOTE | 2016-09-25 07:36 | PD.ORT.PN ---
Subjective Post Op Day #: 1 Pain Scale: 2 Subjective Remarks great Range of Motion 10 to 70 Distance Walked to bathroom Objective Vitals Last 72 hours Impressions Knee X-Ray 09/24/16 0000 Signed Impressions: Service Date/Time: Saturday, September 24, 2016 14:37 - CONCLUSION: Postoperative appearance of total knee prosthesis. Elio Pierre MD Vital Signs Date Time Temp Pulse Resp B/P Pulse Ox O2 Delivery O2 Flow Rate FiO2 09/25/16 06:24 96.7 61 18 117/63 94 09/25/16 01:20 18 09/25/16 01:12 17 09/25/16 00:40 96.4 62 18 105/58 97 09/24/16 20:21 96.7 55 19 119/65 95 09/24/16 19:49 98 Nasal Cannula 3.00 09/24/16 17:20 96.3 59 16 111/62 97 09/24/16 16:50 98.2 61 16 111/59 98 Nasal Cannula 3 09/24/16 16:30 61 17 110/54 98 Nasal Cannula 3 09/24/16 16:00 62 17 102/58 98 Nasal Cannula 3 09/24/16 15:48 15 09/24/16 15:30 61 15 106/58 96 Nasal Cannula 3 09/24/16 15:00 63 15 100/62 96 Nasal Cannula 3 09/24/16 14:45 60 15 100/64 96 Nasal Cannula 3 09/24/16 14:30 64 15 97/53 96 Nasal Cannula 3 09/24/16 14:15 75 15 115/57 96 Nasal Cannula 3 09/24/16 14:06 98.6 88 15 109/59 92 Nasal Cannula 3 09/24/16 08:30 99.0 66 20 137/87 96 I/O 09/24/16 09/24/16 09/24/16 09/25/16 09/25/16 09/25/16 07:00 15:00 23:00 07:00 15:00 23:00 Intake Total 1500 ml 1141 ml 480 ml Output Total 1100 ml 680 ml 600 ml Balance 400 ml 461 ml -120 ml Intake Oral 360 ml 480 ml IV Total 781 ml Other 1500 ml Output Urine Total 700 ml 575 ml 600 ml Drainage Total 105 ml Estimated Blood Loss 400 ml # Bowel Movements 0 0 Result Diagram: 09/25/1632 09/25/1632 Objective Remarks A,A, and O Able to SLR Drsgs clean and dry Moves warm toes well Assessment & Plan Ortho Post Op Day #: 1 Problem List: Assessment and Plan doing great. DC tomorrow Chk platelets and decide VTE prophylaxis Lino Terrazas MD Sep 25, 2016 07:36
[2016-09-25] MEDS ORDERED: WALKER GLIDE WH1 MI1 (07:38)
[2016-09-25] MEDS ORDERED: ADJUSTABLE COMM1 MIS (07:38)
[2016-09-25] MEDS ORDERED: CHOLECALCIFEROL 1000 UNIT PO SCH (09:00)
[2016-09-25] MEDS: SODIUM CHLORIDE 0.9% FLUSH 5 ML FLUSH IVF SCH ×2 (09:10→20:42)
[2016-09-25] MEDS: KETOROLAC TROMETHAMINE 30 MG/ML (IVP) VIAL IVP SCH ×3 (09:10→23:38)
[2016-09-25] MEDS: ACETAMINOPHEN 1000 MG/100 ML VIAL IV SCH ×2 (09:11→20:42)
[2016-09-25] MEDS: CELECOXIB 200 MG CAP PO SCH (09:12)
[2016-09-25] MEDS: ALLOPURINOL 300 MG TAB PO SCH (09:13)
[2016-09-25] MEDS: CHOLECALCIFEROL (VIT D3) 1000 UNIT TAB PO SCH (09:13)
[2016-09-25] MEDS: ASPIRIN 81 MG CHEW TAB PO SCH ×2 (09:13→20:41)
--- NOTE | 2016-09-25 10:24 | MP ---
cc: MERRY TERRAZAS DATE OF SURGERY 09/24/2016 PREOPERATIVE DIAGNOSIS Osteoarthritis left knee POSTOPERATIVE DIAGNOSIS Osteoarthritis left knee OPERATIVE PROCEDURE Total knee replacement arthroplasty left knee using Biomet cemented components as follows femur 75 mm left, tibia 77 mm with I-beam stem, poly 10 mm standard, patella single peg medium. SURGEON Dr. Terrazas ANESTHESIA Spinal TECHNIQUE After induction of spinal anesthesia, a Mccray catheter was introduced. The left lower extremity thoroughly prepped with alcohol and ChloraPrep and draped in routine fashion. After application of Esmarch bandage, tourniquet was inflated to 300 mmHg. A midline skin incision made and medial parapatellar arthrotomy incision was carried out. There were a lot of varicose veins that were cauterized to control bleeding. Obvious osteophytic changes noted in both medial and lateral compartments and patella. Limited debridement was carried out with removal of osteophytes followed by release of the medial structures in the proximal tibia maintaining the integrity of the superficial medial collateral ligament. Patella was everted and some osteophytes removed. The knee was flexed and the femoral canal opened anterior to the posterior cruciate ligament and distal femoral cutting guide set at 5 degrees was used for the initial cut and then recessed 2 more mm for adequate bone removal. A proximal tibial cut was made referencing 2 mm from the lower most portion of the medial posterior medial tibial plateau and then recessed 4 mm to get a good cut and the cut was in excellent alignment. AP guide was used in about 5-6 degrees of external rotation and AP and chamfer cuts were made for a 75-mm implant. Posterior condyles were checked. Additional debridement was carried out followed by using this 10 mm spacer block which fits well in 90 degrees flexion and full extension and also good stability in mid flexion. The spacer block was removed followed by preparation of the bone for the trial implants and femur tibial implants were impacted in place with a 10 mm spacer and it is a stable knee with good range of motion. The patella was then prepared following routine technique. This patella was large and scaphoid and therefore needed some time to prepare properly and then a medial trial patellar implant placed which tracks very nicely. Rotation was marked. All trial implants removed. Bony surfaces were thoroughly lavaged and dried. A mixture of Bupivacaine, Clonidine, Epinephrine and Toradol instilled in the medial and lateral parapatellar areas. Bony surfaces were thoroughly lavaged and dried. The femoral canal plugged with bone and two units of Palacos cement with Tobramycin powder in it was thoroughly mixed and then the tibia was cemented first, followed by cementing the femur getting all excess cement out and extending the knee with a 10 mm spacer and then cementing the patella and clamping it. The tourniquet was released followed by examination of the joint, removal of all debris. Once cement solidified, the knee was checked. Trial implants were removed. The knee was thoroughly lavaged and cleaned out and a 10-mm polyethylene spacer was placed and clipped. Final position, alignment, and stability were good. The Hemovac drain was left in the suprapatellar pouch. The capsule and retinaculum closed with four interrupted #2 Vicryl sutures and then oversewn with #2 quill, subcutaneous tissue with 2-0 Vicryl, skin with 3-0 subcuticular quill and Steri-Strips. Dressings were applied with Xeroform, 4x4s, ABD, ice bladder and Jones bandage. The patient transferred to the recovery room in satisfactory condition. The patient tolerated the procedure well. TRANSFUSIONS AND COMPLICATIONS None POSTOPERATIVE CONDITION Satisfactory PROGNOSIS Good ESTIMATED BLOOD LOSS 200 mL MD FENG Montes/GLENDA /2:32 PM /10:17 AM
[2016-09-25] MEDS: SODIUM CHLOR 0.9% 1000 ML INJ 1,000 ML IV SCH ×2 (12:26→20:44)
[2016-09-25] MEDS: ACETAMINOPHEN/HYDROcodone 325 MG/5 MG TAB PO PRN ×2 (13:41→17:49)
[2016-09-25] MEDS: DOCUSATE SODIUM 100 MG CAP PO SCH (20:41)
[2016-09-25] MEDS: PCA - TOTAL MG MORPHINE DELIVERED PER SHIFT SCH (22:00)
[2016-09-26 04:00] VITALS: BP 136/73; PULSE 70; RESP 17; TEMP 97; O2SAT 98
[2016-09-26] MEDS: SODIUM CHLOR 0.9% 1000 ML INJ 1,000 ML IV SCH (05:03)
[2016-09-26] MEDS: ACETAMINOPHEN/HYDROcodone 325 MG/5 MG TAB PO PRN ×3 (05:36→15:29)
[2016-09-26] MEDS: PCA - TOTAL MG MORPHINE DELIVERED PER SHIFT SCH ×2 (06:00→14:00)
[2016-09-26 07:13] LABS: AUTOMATED NEUTROPHIL # 3.1 TH/MM3 (1.8-7.7); BASOPHIL % 0.3 % (0.0-2.0); EOSINOPHIL # 0.1 TH/MM3 (0-0.4); EOSINOPHIL % 2.3 % (0.0-4.0); HEMATOCRIT 26.7 % (39.0-51.0); LYMPH % 12.5 % (9.0-44.0); LYMPHOCYTE # 0.5 TH/MM3 (1.0-4.8); MEAN CELL VOLUME 82.2 FL (80.0-100.0); MEAN CORPUSCULAR HEMOGLOBIN 27.9 PG (27.0-34.0); MONO % 11.7 % (0.0-8.0); NEUT % 73.2 % (16.0-70.0); PLATELET COUNT 71 TH/MM3 (150-450); RED BLOOD COUNT 3.25 MIL/MM3 (4.50-5.90); RED CELL DISTRIBUTION WIDTH 16.4 % (11.6-17.2); WHITE BLOOD COUNT 4.2 TH/MM3 (4.0-11.0)
[2016-09-26 07:16] LABS: HEMO FLAGS AUTO DIFF
[2016-09-26 08:00] VITALS: BP 121/62; PULSE 72; RESP 16; TEMP 98.9; O2SAT 97
[2016-09-26] MEDS: KETOROLAC TROMETHAMINE 30 MG/ML (IVP) VIAL IVP SCH (08:00)
[2016-09-26 08:03] LABS: PLATELET ESTIMATE SMEAR LOW (NORMAL); PLATELET MORPHOLOGY NORMAL (NORMAL); SCAN/DIFF AUTO DIFF CONFIRMED
[2016-09-26] MEDS: ACETAMINOPHEN 1000 MG/100 ML VIAL IV SCH (11:09)
[2016-09-26] MEDS: ASPIRIN 81 MG CHEW TAB PO SCH (11:10)
[2016-09-26] MEDS: DOCUSATE SODIUM 100 MG CAP PO SCH (11:10)
[2016-09-26] MEDS: CELECOXIB 200 MG CAP PO SCH (11:10)
[2016-09-26] MEDS: SODIUM CHLORIDE 0.9% FLUSH 5 ML FLUSH IVF SCH (11:10)
[2016-09-26] MEDS: CHOLECALCIFEROL (VIT D3) 1000 UNIT TAB PO SCH (11:10)
[2016-09-26] MEDS: ALLOPURINOL 300 MG TAB PO SCH (11:11)
[2016-09-26 12:00] VITALS: BP 139/67; PULSE 79; RESP 16; TEMP 99.7; O2SAT 96
--- NOTE | 2016-09-26 13:30 | PD.ORT.PN ---
Subjective Post Op Day #: 2 Subjective Remarks great Range of Motion 10 - 90 deg Distance Walked a lot Objective Vitals Vital Signs Date Time Temp Pulse Resp B/P Pulse Ox O2 Delivery O2 Flow Rate FiO2 09/26/16 08:00 98.9 72 16 121/62 97 09/26/16 06:00 16 09/26/16 04:00 97.0 70 17 136/73 98 09/26/16 04:00 Room Air 09/26/16 00:00 Room Air 09/25/16 22:00 16 09/25/16 20:00 Room Air 09/25/16 19:00 98.2 69 15 121/61 95 09/25/16 16:00 96.7 76 20 129/69 96 I/O 09/25/16 09/25/16 09/25/16 09/26/16 09/26/16 09/26/16 07:00 15:00 23:00 07:00 15:00 23:00 Intake Total 1120 ml 848 ml 786 ml 403 ml Output Total 655 ml 1250 ml Balance 465 ml -402 ml 786 ml 403 ml Intake Oral 480 ml 600 ml 480 ml 240 ml IV Total 640 ml 248 ml 306 ml 163 ml Output Urine Total 600 ml 1250 ml Drainage Total 55 ml # Voids 1 3 3 # Bowel Movements 0 0 1 Result Diagram: 09/26/16 0625 09/25/16 0532 Objective Remarks A,A, and O Able to SLR Drsgs clean and dry Moves warm toes well DCed with instructions for ice, exercises and take one adult ASA daioly for VTE prophylaxis. Platelets 62222, will spontaneously come up. too risky to use anything other than ASA Assessment & Plan Ortho Post Op Day #: 2 Problem List: Assessment and Plan doing great. DC tomorrow Chk platelets and decide VTE prophylaxis Lino Terrazas MD Sep 26, 2016 13:30
[2016-09-26 14:00] VITALS: RESP 20
--- NOTE | 2016-09-30 20:20 | MD ---
cc: MERRY ADAM ADMISSION DATE: 09/24/2016 DISCHARGE DATE: 09/26/2016 ADMISSION DIAGNOSIS Osteoarthritis left knee. DISCHARGE DIAGNOSIS Osteoarthritis left knee. HISTORY History consisted of longstanding problems with both knee joints treated nonoperatively and then arthroscopic surgery but now it has become so bad he cannot do activities of daily living without use of assistive device. Three months ago he was admitted to have a right total knee replacement done. He did very well. After appropriate workup, the patient was admitted to the hospital on 09/24/2016 for total knee replacement arthroplasty of the left knee and he has done very well postoperatively, ambulating with a walker, full weightbearing, moved the knee well, etc. His platelet count is low with today's being 71,000. We had the same experience on the last admission and we want to do the same as the last admission of using one ___ aspirin daily for VTE prophylaxis. DISCHARGE MEDICATIONS His other discharge medications are: 1. Celebrex 200 milligrams daily for two weeks. 2. Hydrocodone for pain. The patient has an appointment to see me 12 days postop. Postoperative x-rays were satisfactory. Postoperative course uneventful. MD FENG Montes/THELMA /1:34 PM /8:15 PM
== END 2016-09-26 15:54 | disposition home health service (06) | DRG 470 ==
LOC: EDSTATUS 09-10 08:00 → HSDI 09-24 07:34 → N06B 09-24 17:09
PROVIDERS: ADMIT Orthopaedic Surgery; ATTEND Orthopaedic Surgery
PROC: 0SRD0J9 Replacement of Left Knee Joint with Synthetic Substitute, Cemented, Open Approach (ICD-10-PCS; principal; 2016-09-24 10:43)
DX: M17.12 Unilateral primary osteoarthritis, left knee (principal); M10.9 Gout, unspecified; Z87.891 Personal history of nicotine dependence
CPT/HCPCS: 73560; 80048; 85014; 85018; 85025; 85049; 86850; 86900; 86901; 86920; 86922; 93005; 94150; C1776; C9290; J0131; J0171; J0690; J0735; J1580; J1885; J2250; J2270; J2370; J2405; J2795; J3010; J3370; J7030; J7040; J7050; J7120